=== PATIENT | female | born 2000 | race Asian ===

== ENCOUNTER 2023-10-24 11:09 | Inpatient (IN) ==
[2023-10-24 12:37] LABS: Urine Appearance Clear; Urine Bilirubin Negative (Negative); Urine Blood 1+ (Negative); Urine Color Yellow; Urine Glucose Negative (Negative); Urine Ketones Negative (Negative); Urine Nitrite Negative (Negative); Urine Protein Trace (Negative); Urine Specific Gravity 1.022 (1.002-1.030); Urine Urobilinogen Negative (Negative); Urine pH 5.5 (5.0-8.0)
[2023-10-24 12:39] LABS: Urine Bacteria Absent /HPF (Absent); Urine Red Blood Cell 3+(>10/hpf) /HPF (0-Trace); Urine Squamous Epithelial Cell Present /HPF (Absent); Urine White Blood Cell Trace(0-5/hpf) /HPF (0-Trace)
[2023-10-24] MEDS: Lactated Ringers 1000 ml BAG 1,000 ML IV ONE (14:13)
[2023-10-24] MEDS: Metoclopramide 5 MG/ML VIAL (10 mg) IV ONE (14:13)
[2023-10-24 14:14] LABS: ABS Basophils 0.1 10^3/uL (0.0-0.1); ABS Lymphocytes 1.3 10^3/uL (1.0-4.8); ABS Monocytes 0.5 10^3/uL (0.0-0.9); ABS Neutrophils 2.6 10^3/uL (1.5-7.6); ABS Nucleated RBC 0.01 10^3/ul; Eosinophil % 1.1 %; Hematocrit 38.3 % (35-45); Hemoglobin 13.3 g/dL (11.5-14.3); Lymphocyte % 29.2 %; Mean Corpuscular Hemoglobin 31.5 pg (27-33); Mean Corpuscular Hgb Conc 34.8 g/dL (31-36); Mean Corpuscular Volume 90.6 fL (80-97); Mean Platelet Volume 7.8 fL (7.5-11.2); Nucleated Red Blood Cells % 0.1 %/100WBC (0.0-0.8); Platelet Count 206 10^3/uL (150-450); Red Blood Count 4.23 10^6/uL (3.63-4.92); Red Cell Distribution Width 11.8 % (12-17); White Blood Count 4.6 10^3/uL (3.8-11.8)
[2023-10-24] MEDS: Morphine 4 MG/ML VIAL (1 ml) IV ONE (14:25)
[2023-10-24 14:40] LABS: High Sens Troponin Baseline < 3 pg/mL (<15)
[2023-10-24] MEDS ORDERED: Lidocaine 1% VIAL 10 MG/ML 30 ML VIAL ONE (14:55)
[2023-10-24] MEDS: Lidocaine 1% VIAL 10 MG/ML 30 ML VIAL INJ ONE (15:00)
[2023-10-24 15:09] LABS: ALT 7 U/L (7-52); Albumin 4.6 g/dL (3.2-5.2); Albumin/Globulin Ratio 1.9 (1-3); Alkaline Phosphatase 44 U/L (35-149); Anion Gap 8 mmol/L (2-16); Blood Urea Nitrogen 6 mg/dL (6-24); C Reactive Protein < 1.00 mg/L (<8.01); CO2 Carbon Dioxide 25 mmol/L (22-32); Calcium 9.3 mg/dL (8.6-10.3); Chloride 101 mmol/L (101-111); Creatinine, Serum 0.74 mg/dL (0.51-0.95); Globulin 2.4 g/dL (2-4); Glucose 87 mg/dL (70-100); HCG Pregnancy < 0.60 mIU/mL; Sodium 134 mmol/L (135-145); Total Bilirubin 0.3 mg/dL (0.2-1.0); eGFR CKD-EPI 117.2 (>60)
[2023-10-24 15:22] LABS: Body Fluid Source Cerebral Spinal
[2023-10-24 15:40] LABS: CSF Glucose 39 mg/dL (40-70)
[2023-10-24 15:53] LABS: Body Fluid Appearance Clear; Body Fluid Color Colorless; CSF Tube # 4
[2023-10-24] MEDS: cefTRIAXone 2 gm/50 mL D5W 2 GM/50 ML BAG IV ONE (15:57)
[2023-10-24 16:34] LABS: High Sensitivity Troponin 1 Hr < 3 pg/mL (<15)
[2023-10-24 16:45] LABS: AST Redraw 12 U/L (13-39); Potassium Redraw 3.8 mmol/L (3.5-5.0)
[2023-10-24 16:47] LABS: Body Fluid Mono 7 %; Body Fluid Total Cells Counted 200
[2023-10-24 16:49] LABS: CSF Body Fluid WBC 309 /mcL
[2023-10-24 16:58] LABS: INR 1.1 (0.85-1.14)
[2023-10-24] MEDS: Acyclovir IV 500 MG/10 ML VIAL IVPB ONE (17:18)
[2023-10-24] MEDS: Acyclovir IV 570 MG in NS 0.9% 100 ml BAG 100 ML IVPB ONE (17:18)
[2023-10-24] MEDS: Vancomycin 1,000 MG in NS 0.9% 250 ml 250 ML IVPB ONE (17:25)
[2023-10-24] MEDS: Acetaminophen IV 1 GM/100ML 1,000 MG/100 ML BAG IV PRN (18:18)
[2023-10-24] MEDS: Ondansetron 4 mg VIAL 2 MG/ML 2 ml VIAL IV PRN (22:28)
[2023-10-25] MEDS ORDERED: Acyclovir IV 500 MG/10 ML VIAL IVPB SCH (01:00)
[2023-10-25] MEDS: Acyclovir IV 570 MG in NS 0.9% 100 ml BAG 100 ML IVPB SCH ×2 (02:53→16:39)
[2023-10-25] MEDS: cefTRIAXone 1 gm/50 mL D5W 1 GM/50 ML BAG IV SCH ×2 (04:08→15:40)
[2023-10-25] MEDS: Prochlorperazine 5 mg/ml 2 ml VIAL (10 mg) IV PRN (10:40)
[2023-10-26 07:44] LABS: ABS Eosinophils 0.1 10^3/uL (0.0-0.5); ABS Lymphocytes 1.5 10^3/uL (1.0-4.8); ABS Monocytes 0.8 10^3/uL (0.0-0.9); Eosinophil % 1.9 %; Hematocrit 37.5 % (35-45); Hemoglobin 13.3 g/dL (11.5-14.3); Lymphocyte % 19.8 %; Mean Corpuscular Hemoglobin 31.9 pg (27-33); Mean Corpuscular Hgb Conc 35.3 g/dL (31-36); Mean Corpuscular Volume 90.3 fL (80-97); Mean Platelet Volume 7.6 fL (7.5-11.2); Platelet Count 169 10^3/uL (150-450); Red Blood Count 4.16 10^6/uL (3.63-4.92); Red Cell Distribution Width 11.5 % (12-17); White Blood Count 7.4 10^3/uL (3.8-11.8)
[2023-10-26 08:24] LABS: Calcium 8.8 mg/dL (8.6-10.3); Creatinine, Serum 1.82 mg/dL (0.51-0.95); Potassium 3.9 mmol/L (3.5-5.0); eGFR CKD-EPI 39.8 (>60)
[2023-10-26] MEDS: NS 0.9% 1000 ml BAG 1,000 ML IV SCH (09:22)
[2023-10-27 00:37] LABS: Anaplasma phagocytophilum Negative (Negative); B. miyamotoi PCR, B Negative (Negative); Babesia divergens/MO-1 Negative (Negative); Babesia ducani Negative (Negative); Ehrlichia chaffeensis Negative (Negative); Ehrlichia ewingii/canis Negative (Negative); Ehrlichia muris eauclairensis Negative (Negative)
[2023-10-27 06:55] LABS: Calcium 8.4 mg/dL (8.6-10.3); Creatinine, Serum 1.39 mg/dL (0.51-0.95); Potassium 3.8 mmol/L (3.5-5.0)
[2023-10-27] MEDS: Acyclovir IV 450 MG in NS 0.9% 100 ml BAG 100 ML IVPB SCH (09:00)
[2023-10-27] MEDS: Polyethylene Glycol 3350 17 GM PACKET PO PRN (10:32)
[2023-10-27 21:33] LABS: HSV 1 PCR, CSF Negative (Negative); HSV 2 PCR, CSF Negative (Negative)
[2023-10-28 06:51] LABS: Calcium 8.3 mg/dL (8.6-10.3); Creatinine, Serum 0.85 mg/dL (0.51-0.95); Potassium 3.8 mmol/L (3.5-5.0); eGFR CKD-EPI 99.3 (>60)
[2023-10-28] MEDS ORDERED: Senna TAB 8.6 mg TAB PO PRN (17:03)
[2023-10-28 20:56] LABS: Varicella Zoster Source CSF; Varicella Zoster Virus PCR Negative (Negative)
[2023-10-29 09:29] VITALS: BP 118/79
== END 2023-10-29 10:30 | disposition home or self-care (01) | DRG 75 ==
LOC: ED 11:09 → EDHOLD 11:09 → MED 10-25 11:35 → SUATTDRO 10-25 16:44 → MED 10-27
PROVIDERS: ADMIT Hospitalist; ATTEND Internal Medicine